=== PATIENT | female | born 1955 | race Two or more races ===

== ENCOUNTER 2017-01-10 15:40 | Emergency (ER) | payer OTHER ==
[2017-01-10] MEDS ORDERED: LIDOCAINE VISCOUS 2% 15ML UD PO ONE (19:30)
[2017-01-10 20:13] VITALS: BP 136/87
== END 2017-01-10 20:16 | disposition home or self-care (01) ==
LOC: ER 16:08
DX: J03.90 Acute tonsillitis, unspecified (principal)

== ENCOUNTER 2019-06-10 12:04 | Inpatient (IN) | payer MEDICAID, OTHER ==
[~2019-06-10] VITALS: Ht 152.4 cm; Wt 81.2 kg
[2019-06-10 13:14] LABS: Urine Bacteria NONE SEEN /hpf (None Seen); Urine Blood 1+ /uL (Negative); Urine Mucus FEW (None Seen); Urine Specific Gravity 1.022 (1.001-1.035); Urine WBC 16 /hpf (0 - 5)
[2019-06-10 13:24] LABS: Basophils # (auto) 0 uL; Basophils % (auto) 0.2 % (0.0-2.0); Eosinophils # (auto) 0 uL; Hematocrit 43.8 % (36.0-46.0); Hemoglobin 14.6 g/dL (12.2-16.2); Lymphocytes # (auto) 0.5 uL; Lymphocytes % (auto) 5.1 % (10.0-50.0); Mean Corpuscular Hemoglobin 29.3 pg (28.0-32.0); Mean Corpuscular Hgb Conc. 33.2 g/dL (32.0-36.0); Mean Corpuscular Volume 88.3 fL (80.0-100.0); Monocytes # (auto) 0.4 uL; Monocytes % (auto) 3.4 % (0.0-12.0); Neutrophils # (auto) 9.4 uL; Neutrophils % (auto) 91.3 % (37.0-80.0); Platelet Count (auto) 184 10^3/uL (140-450); Red Blood Cells 4.96 10^6/uL (4.0-5.20); Red Cell Distribution Width 14.3 % (11.8-14.3); White Blood Cell 10.3 10^3/uL (4.4-10.8)
[2019-06-10 13:40] LABS: Albumin 3.5 g/dL (3.4-5.0); Calcium 9.1 mg/dL (8.5-10.1); Potassium 3.4 mmol/L (3.5-5.1)
[2019-06-10 13:42] LABS: BUN/Creatinine Ratio 10.9
[2019-06-10 13:43] LABS: INR 1.07 (0.9-1.15); Partial Thromboplastin Time 29.3 sec (23.64-32.05)
[2019-06-10 13:45] LABS: Bilirubin, Total 0.6 mg/dL (0.2-1.0); Total Protein 7.9 g/dL (6.4-8.2)
[2019-06-10] MEDS ORDERED: SODIUM CHLORIDE 0.9% 1,000 ML IVB ONE (13:53)
[2019-06-10] MEDS ORDERED: cefTRIAXone 1GM/50ML D5W 50 ML IV ONE (16:45)
[2019-06-10] MEDS ORDERED: PANTOPRAZOLE 40 MG/10 ML VIAL INJ IV ONE (16:45)
[2019-06-10] MEDS ORDERED: ONDANSETRON HCL 4 MG/2 ML VIAL IV ONE (16:45)
[2019-06-10] MEDS ORDERED: cefTRIAXone SOD 1,000 MG VL ONE (17:02)
[2019-06-10] MEDS ORDERED: ACETAMINOPHEN 500 MG TAB PO PRN (17:45)
[2019-06-10] MEDS ORDERED: ONDANSETRON HCL 4 MG/2 ML VIAL IV PRN (17:45)
[2019-06-10] MEDS ORDERED: NITROGLYCERIN 0.4 MG SL TAB SL PRN (17:45)
[2019-06-10] MEDS ORDERED: POTASSIUM CHL 10 Meq TABLET PO ONE (17:45)
[2019-06-10] MEDS ORDERED: MORPHINE SULF INJ 2 MG/ML SYRINGE 1ML IV PRN ×2 (17:45)
[2019-06-10] MEDS: SODIUM CHLORIDE 0.9% 1,000 ML IV SCH (17:56)
[2019-06-10] MEDS: HYDROcodone-ACET 5/325MG TAB PO PRN (18:12)
--- NOTE | 2019-06-10 21:30 | NUR ---
OPENING NOTE RECEIVED PATIENT FROM ER. NO REPORT RECEIVED AT THIS TIME. ASSUMING ROLE OF CARE OF PATIENT AT THIS TIME. PATIENT SHOWING NO SIGN OF DISTRESS, SHORTNESS OF BREATH, AND PATIENT DENIES ANY PAIN AT THIS TIME. PATIENT EDUCATED ON PLAN OF CARE FOR THE NIGHT AND PATIENT VERBALIZED UNDERSTANDING. BED LOWERED, CALL LIGHT WITHIN REACH, AND PATIENT WILL BE ROUNDED ON EVERY HOUR AND NEEDED.
[2019-06-10 22:00] VITALS: BP 131/68
[2019-06-10 22:10] VITALS: BP 131/68
[2019-06-10] MEDS ORDERED: OMEP20TA PO (23:00)
[2019-06-11 05:00] VITALS: BP 118/68
[2019-06-11] MEDS: SODIUM CHLORIDE 0.9% 1,000 ML IV SCH (06:00)
[2019-06-11 06:36] LABS: Basophils # (auto) 0 uL; Basophils % (auto) 0.2 % (0.0-2.0); Eosinophils # (auto) 0 uL; Hematocrit 37.8 % (36.0-46.0); Hemoglobin 12.5 g/dL (12.2-16.2); Lymphocytes # (auto) 0.8 uL; Lymphocytes % (auto) 10.7 % (10.0-50.0); Mean Corpuscular Hemoglobin 29.4 pg (28.0-32.0); Mean Corpuscular Hgb Conc. 33.2 g/dL (32.0-36.0); Mean Corpuscular Volume 88.6 fL (80.0-100.0); Monocytes # (auto) 0.5 uL; Monocytes % (auto) 6.1 % (0.0-12.0); Neutrophils # (auto) 6.3 uL; Platelet Count (auto) 147 10^3/uL (140-450); Red Blood Cells 4.26 10^6/uL (4.0-5.20); Red Cell Distribution Width 13.8 % (11.8-14.3); White Blood Cell 7.6 10^3/uL (4.4-10.8)
[2019-06-11 07:05] LABS: BUN/Creatinine Ratio 14.9; Potassium 3.5 mmol/L (3.5-5.1)
[2019-06-11 07:38] LABS: Cholesterol 144 mg/dL (< 200)
[2019-06-11 07:40] LABS: HDL Cholesterol 51 mg/dL (40-59); LDL Cholesterol 88 mg/dL (< 100); Triglycerides 60 mg/dL (< 150)
--- NOTE | 2019-06-11 07:50 | NUR ---
Opening Shift Note Assumed care of patient, asleep but easily aroused. No S/S of distress/SOB or pain. Instructed on POC and to call for assist PRN, will continue to monitor for changes Q1hr and PRN.
[2019-06-11 08:00] VITALS: BP 121/70
[2019-06-11] MEDS ORDERED: cefTRIAXone 1GM/50ML D5W 50 ML IV SCH (09:00)
[2019-06-11] MEDS: HYDROcodone-ACET 5/325MG TAB PO PRN (09:12)
[2019-06-11] MEDS ORDERED: FAMOTIDINE 20 MG TAB PO SCH (10:00)
[2019-06-11] MEDS ORDERED: POTASSIUM CHL 20 Meq TABLET PO ONE (10:30)
--- NOTE | 2019-06-11 10:55 | NUR ---
Rounding Dr. Gallego at bedside.
[2019-06-11 12:00] VITALS: BP 106/68
[2019-06-11 15:08] VITALS: BP 106/68
[2019-06-11 17:00] VITALS: BP 116/73
--- NOTE | 2019-06-11 17:55 | NUR ---
Discharge instructions given as ordered. Encourage to follow up with PMD as instructed. All questions and concerns addressed. Patient verbalized understanding. Medication reconciliation form completed and copy given to patient. IV removed with catheter intact and pressure dressing applied. Patient ambulated to vehicle with all personal belongings, accompanied by staff and family member. No distress noted at time of departure.
== END 2019-06-11 17:58 | disposition home or self-care (01) | DRG 241 ==
LOC: ER 12:07 → OVERFLOW 12:08 → EAST 21:24
PROVIDERS: ADMIT Nurse Practitioner Acute Care; ATTEND Internal Medicine
DX: K29.70 Gastritis, unspecified, without bleeding (principal); K44.0 Diaphragmatic hernia with obstruction, without gangrene; N39.0 Urinary tract infection, site not specified; E11.9 Type 2 diabetes mellitus without complications; E66.9 Obesity, unspecified; E87.6 Hypokalemia; I10 Essential (primary) hypertension; K44.9 Diaphragmatic hernia without obstruction or gangrene; Z83.3 Family history of diabetes mellitus; Z90.49 Acquired absence of other specified parts of digestive tract; Z82.49 Family history of ischemic heart disease and other diseases of the circulatory system; Z68.35 Body mass index [BMI] 35.0-35.9, adult
CPT/HCPCS: 36415; 71046; 74176; 80048; 80053; 80061; 81001; 82150; 83036; 83690; 83735; 84443; 85025; 85610; 85730; 87086; 94761; 96365; G0378; J0696; J2405